=== PATIENT | male | born 1970 | race Caucasian/White ===

== ENCOUNTER 2019-09-13 11:31 | Outpatient (CLI) | payer OTHER, SELFPAY ==
[2019-09-13 12:10] LABS: Hematocrit 41.6 % (42.0-52.0); Mean Corpuscular HGB Conc 33.7 g/dl (32-36); Platelet Count Result 178 k/mm3 (150-375); Red Blood Count 4.52 M/mm3 (4.6-6.20); Red Cell Distribution Width 12.9 % (11.5-14.5); White Blood Count 5.5 K/mm3 (4.5-10.0)
--- NOTE | 2019-09-13 12:15 | ECG_ITS ---
Measurements Intervals [place] Rate: 75 P: 57 DE: 137 QRS: 81 QRSD: 102 T: 47 QT: 386 QTc: 432 Interpretive Statements SINUS RHYTHM DELAYED PRECORDIAL R/S TRANSITION BORDERLINE ST ABNORMALITY- INFERIOR LEADS BASELINE ARTIFACT- I, III, AVL, AVF BORDERLINE ECG Electronically Signed On 09-13-2019 12:28:34 ALMOND CUTTING MACHINE TENDER by Antonio Gonzales D.O.
[2019-09-13 12:22] LABS: Urine Cotinine NEGATIVE
[2019-09-13 12:29] LABS: Alanine Aminotransferase 25 U/L (4-50); Albumin Level 3.9 g/dL (3.5-5.1); Alkaline Phosphatase 88 U/L (38-126); Aspartate Amino Transferase 28 U/L (17-59); Bilirubin,Total 0.5 mg/dL (0.2-1.3); Blood Urea Nitrogen 13 mg/dL (9-20); Calcium 9.2 mg/dL (8.4-10.2); Carbon Dioxide 26 mmol/L (22-30); Chloride 102 mmol/L (98-107); Estimated Glomerular Filt Rate > 60; Glucose 110 mg/dL (75-110); Potassium 3.9 mmol/L (3.4-5.0); Sodium 136 mmol/L (137-145)
== END 2019-09-13 11:32 | disposition home or self-care (01) ==
PROVIDERS: PCP Family Medicine Adolescent Medicine
DX: Z01.818 Encounter for other preprocedural examination (principal); Z72.0 Tobacco use; R94.31 Abnormal electrocardiogram [ECG] [EKG]
CPT/HCPCS: 36415; 80053; 80307; 85027; 93005

== ENCOUNTER → 2020-05-03 11:51 | Outpatient (CLI) | payer OTHER, SELFPAY ==
--- NOTE | ~2020-05-03 | MR_ITS ---
EXAMINATION: MR brain/brain stem wo/w con EXAM DATE: 05/03/2020 12:28 INDICATION: Memory loss. TECHNIQUE: Magnetic resonance imaging (MRI) of the brain/brain stem obtained without contrast. Sagit aditya T1, axial diffusion, gradient echo (T2*), T1, T2, FLAIR sequences obtained. Patient was then inj ected with 15 cc intravenous Multihance contrast. Axial and coronal postcontrast T1 weighted sequence s obtained. Comparison is made to prior examination from 04/25/2018. FINDINGS: There are no areas of restricted diffusion to suggest acute infarction. There is no acute hemorrhage seen on the T2*, a hemosiderin sensitive sequence. No intraparenchymal brain mass. The ve ntricles are normal in size. There are no extra-axial collections. Flow voids are seen in the cereb ral arteries on the T2-weighted sequences consistent with their expected patency. The orbits are unr emarkable. Soft tissue is unremarkable. IMPRESSION: Normal brain MRI examination. Reviewed, dictated and finalized at location B.
[2020-05-03 12:15] LABS: Estimated Glomerular Filt Rate > 60
== END ==
PROVIDERS: PCP Family Medicine Adolescent Medicine; Visit Provider Physician Assistant
DX: R41.3 Other amnesia (principal)
CPT/HCPCS: 70553; A9577

== ENCOUNTER 2021-12-07 13:48 | Emergency (ER) | payer OTHER, SELFPAY ==
--- NOTE | ~2021-12-07 | XR_ITS ---
EXAMINATION: XR elbow RT min 3V DATE: 12/07/2021 14:24 INDICATION: Gout presenting with right elbow pain and swelling TECHNIQUE: Anteroposterior, two oblique and lateral views of the right elbow were obtained. COMPARISON: None. FINDINGS: Alignment is normal. No fracture. Subtle chondrocalcinosis along the radiocapitellar articulation. Th ere is mild nonuniform joint space narrowing at the ulnotrochlear articulation. Small marginal osteop hytes along the ulnar and radial head. No erosions. Right elbow joint effusion and/or synovitis is pr esent with displacement of both the anterior and posterior fat pads. Soft tissues are unremarkable. IMPRESSION: 1. Chondrocalcinosis, mild osteoarthritis and joint effusion and/or synovitis at the right elbow. No erosions or acute osseous abnormality. Reviewed, dictated and finalized at location A. IMPRESSION: 1. Chondrocalcinosis, mild osteoarthritis and joint effusion and/or synovitis a t the right elbow. No erosions or acute osseous abnormality.
[2021-12-07 13:51] VITALS: BP 137/102; PULSE 87; RESP 20; TEMP 36.2; O2SAT 100
--- NOTE | 2021-12-07 14:26 | ED.UPPEXIN ---
HPI - Extremity Injury (Upper) General Chief Complaint: Extremity Injury, Upper Stated Complaint: gout in elbow Time Seen by Provider: 12/07/21 14:05 History of Present Illness HPI narrative: 51-year-old male presents to the emergency room for evaluation of right ankle pain. Patient states he developed an acute onset of right elbow pain this morning. Denies injury or trauma. Patient states he has a history of gout, which is commonly in his knees. Patient states he takes allopurinol twice daily. Patient reports soft tissue swelling and warmth to the elbow. Related Data Home Medications Medication Instructions Recorded Confirmed venlafaxine 150 mg tablet,extended 150 mg PO DAILY 09/06/21 release 24 hr Allergies Allergy/AdvReac Type Severity Reaction Status Date / Time amitriptyline AdvReac Mild drowsiness Verified 08/28/21 08:27 Review of Systems Review of Systems: CONSTITUTIONAL: Denies fever, chills, or sweats. EYES: Denies visual changes, redness, or discharge. ENT: Denies rhinorrhea, congestion, sore throat, or otalgia. CARDIOVASCULAR: Denies chest pain, palpitations, or edema. RESPIRATORY: Denies cough or dyspnea. GASTROINTESTINAL: Denies abdominal pain, nausea, vomiting, or diarrhea. GENITOURINARY: Denies dysuria or hematuria. SKIN: Denies rash or itching. MUSCULOSKELETAL: Reports right elbow pain NEUROLOGIC: Denies headache, numbness, dizziness, or weakness. PSYCHIATRIC: Denies anxiety or depression. PMFSH Surgical History Surgical History H/O shoulder surgery History of cervical spinal arthrodesis 09/30 Dr. Kamara History of foot surgery Family History Family History Father Diabetes mellitus Heart disease Mother Patient's mother is Diabetes mellitus Carcinoma of colon Social History Social History Smoking status: Heavy tobacco smoker Second hand tobacco smoke exposure: Yes Smoking end date: 11/14/13 Alcohol intake: current Exam Narrative: GENERAL: Well-appearing, well-nourished, and in mild acute distress. HEAD: Normocephalic, atraumatic. EYES: PERRLA and EOMI. CHEST: Clear to auscultation. No respiratory distress. No wheezes rales or rhonchi HEART: Regular rate and rhythm. No murmur heard. Normal peripheral pulses. ABDOMEN: Soft, nontender, nondistended, normal active bowel sounds. EXTREMITIES: Right elbow: No obvious bony abnormality, diffuse soft tissue swelling, warm, no erythema or ecchymosis noted limited range of motion due to swelling and pain, neurovascular is intact distally SKIN: Warm, dry, no rash. NEURO: No focal deficits. Alert and oriented x3. PSYCH: Normal mood and affect. Course Vital Signs Vital signs: Vital Signs Temperature 36.2 C L 12/07/21 13:51 Pulse Rate 87 12/07/21 13:51 Respiratory Rate 20 12/07/21 13:51 Blood Pressure 137/102 H 12/07/21 13:51 Pulse Oximetry 100 12/07/21 13:51 Temperature 36.2 C L 12/07/21 13:51 Pulse Rate 87 12/07/21 13:51 Respiratory Rate 20 12/07/21 13:51 Blood Pressure 137/102 H 12/07/21 13:51 Pulse Oximetry 100 12/07/21 13:51 MDM - Extremity Injury (Upper) Medical Records Attestation: I reviewed the patient's medical records. Lab Data Attestation: I reviewed the patient's lab results. Result diagrams: 12/07/21 14:37 12/07/21 14:37 Labs: Lab Results 12/07/21 12/07/21 Range/Units 14:37 14:37 WBC 12.0 H (4.5-10.0) K/mm3 RBC 4.64 (4.6-6.20) M/mm3 Hgb 14.1 (14.0-18.0) g/dL Hct 42.5 (42.0-52.0) % MCV 91.6 (80-100) fl MCH 30.4 (26-34) pg MCHC 33.2 (32-36) g/dl RDW 13.3 (11.5-14.5) % Plt Count 199 (150-375) k/mm3 MPV 9.4 (7.4-10.4) fl Immature Gran % (Auto) 0.4 (0-0.5) % Neut % (Auto) 87.4 H (45.5-73.1) % Lymph % (Au
[2021-12-07] MEDS: KETOROLAC 30 MG/ML VIAL (*BKC) IV PUSH (14:34)
[2021-12-07 14:44] LABS: Basophils Percent Auto 0.3 % (0.2-1.2); Eosinophils Percent Auto 0.2 % (0-4.4); Hematocrit 42.5 % (42.0-52.0); Hemoglobin 14.1 g/dL (14.0-18.0); Immature Granulocyte Absolute 0.05 K/mm3 (0.00-0.031); Immature Granulocyte Percent A 0.4 % (0-0.5); Lymphocytes Absolute Auto 0.76 K/mm3 (0.9-3.2); Lymphocytes Percent Auto 6.3 % (18.3-44.2); Mean Corpuscular HGB Conc 33.2 g/dl (32-36); Mean Corpuscular Hemoglobin 30.4 pg (26-34); Mean Corpuscular Volume 91.6 fl (80-100); Mean Platelet Volume 9.4 fl (7.4-10.4); Monocytes Absolute Auto 0.7 K/mm3 (0.1-0.6); Monocytes Percent Auto 5.4 % (2.6-8.5); Neutrophils Absolute Auto 10.5 K/mm3 (1.3-6.7); Neutrophils Percent Auto 87.4 % (45.5-73.1); Platelet Count Result 199 k/mm3 (150-375); Red Blood Count 4.64 M/mm3 (4.6-6.20); Red Cell Distribution Width 13.3 % (11.5-14.5)
[2021-12-07 14:59] LABS: Alanine Aminotransferase 18 U/L (4-50); Albumin Level 3.8 g/dL (3.5-5.1); Alkaline Phosphatase 98 U/L (38-126); Anion Gap 7 mmol/L (8-16); Aspartate Amino Transferase 25 U/L (17-59); Bilirubin,Total 0.4 mg/dL (0.2-1.3); Blood Urea Nitrogen 16 mg/dL (9-20); Calcium 8.7 mg/dL (8.4-10.2); Carbon Dioxide 23 mmol/L (22-30); Chloride 104 mmol/L (98-107); Estimated CRCL calculation 60 ml/min; Estimated Glomerular Filt Rate > 60; Glucose 153 mg/dL (65-110); Potassium 3.8 mmol/L (3.4-5.0); Sodium 134 mmol/L (137-145)
== END 2021-12-07 15:42 | disposition home or self-care (01) ==
PROVIDERS: Emergency Medicine; Emergency Provider Nurse Practitioner Family; PCP Family Medicine Adolescent Medicine
DX: M11.221 Other chondrocalcinosis, right elbow (principal); Z98.1 Arthrodesis status; Z87.891 Personal history of nicotine dependence; M19.021 Primary osteoarthritis, right elbow
CPT/HCPCS: 36415; 73080; 80053; 85025; 96372; 96374; 99284; J1100; J1885

== ENCOUNTER 2022-07-02 21:48 | Inpatient (IN) | payer MEDICARE, MEDICAID, SELFPAY ==
[2022-07-02] VITALS (10 sets, daily range): BP systolic 110–121; BP diastolic 86–93; PULSE 80–99; RESP 20–30; TEMP 36.9; O2SAT 94–98
--- NOTE | ~2022-07-02 | US_ITS ---
EXAMINATION: US renal BI DATE: 07/03/2022 09:29 INDICATION: Acute kidney injury. TECHNIQUE: Multiple ultrasound grayscale images of the kidneys were obtained. COMPARISON: None. FINDINGS: The right kidney measures 11.1 x 5.2 x 5.4 cm. The left kidney measures 10.2 x 5.4 x 5.9 cm. The kidn eys demonstrate normal parenchymal echogenicity. There is no hydronephrosis. The bladder is decompres sed by a Ratliff catheter. IMPRESSION: 1. Normal kidneys. No hydronephrosis. Reviewed, dictated and finalized at location A. UNTS EXECUTIVE
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
--- NOTE | ~2022-07-02 | XR_ITS ---
EXAMINATION: XR chest 1V portable DATE: 07/03/2022 13:04 INDICATION: Chronic obstructive pulmonary disease. TECHNIQUE: A single frontal view of the chest was obtained. COMPARISON: Chest 2 views 12/07/2018, chest CT 08/03/2015 FINDINGS: The chest demonstrates clear lungs without pneumonia, pleural effusion, or pneumothorax. Th e heart size is normal. IMPRESSION: 1. No acute cardiopulmonary disease. Reviewed, dictated and finalized at location A. ION FUND MANAGER
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
--- NOTE | 2022-07-02 22:26 | PC.NURSE ---
Poison control contacted at 22:22. Per pharmacist they recommend supportive and symptomatic care at this time. Per pharmacist expect decreased REAL ESTATE REPRESENTATIVE and respiratory depression. Peak time is 15 mins to 2 1/2 hours. Pt can tolerate a maximum dose of 143.6mg / day. It is estimated pt took 30-40 5 mg diazepam pills equaling 150-200mg. Poison control pharmacist does not recommend flumazenil due to it being his prescription and can increase effects of withdrawal.
--- NOTE | 2022-07-02 22:30 | ECG_ITS ---
Measurements Intervals [place] Rate: 94 P: 57 AL: 134 QRS: 51 QRSD: 109 T: 47 QT: 367 QTc: 459 Interpretive Statements SINUS RHYTHM NORMAL ECG COMPARED TO ECG 09/13/2019 12:24:58 NO SIGNIFICANT CHANGES Electronically Signed On 07-03-2022 9:02:44 MEAT CARVER by Antonio Gonzales D.O.
[2022-07-02 22:46] LABS: Basophils Percent Auto 0.2 % (0.2-1.2); Eosinophils Absolute Auto 0.1 K/mm3 (0-0.3); Eosinophils Percent Auto 0.8 % (0-4.4); Hematocrit 44.7 % (42.0-52.0); Hemoglobin 15.2 g/dL (14.0-18.0); Immature Granulocyte Absolute 0.02 K/mm3 (0.00-0.031); Immature Granulocyte Percent A 0.2 % (0-0.5); Lymphocytes Absolute Auto 1.52 K/mm3 (0.9-3.2); Lymphocytes Percent Auto 15.7 % (18.3-44.2); Mean Corpuscular Hemoglobin 30.7 pg (26-34); Mean Corpuscular Volume 90.3 fl (80-100); Monocytes Absolute Auto 0.5 K/mm3 (0.1-0.6); Monocytes Percent Auto 5.6 % (2.6-8.5); Neutrophils Absolute Auto 7.5 K/mm3 (1.3-6.7); Neutrophils Percent Auto 77.5 % (45.5-73.1); Platelet Count Result 197 k/mm3 (150-375); Red Blood Count 4.95 M/mm3 (4.6-6.20); White Blood Count 9.7 K/mm3 (4.5-10.0)
[2022-07-02 22:59] LABS: Acetaminophen < 10 ug/mL (10-30); Ethanol < 10 mg/dL (<10); Salicylate < 1.0 mg/dL (2-20)
[2022-07-02 23:00] LABS: Alanine Aminotransferase 20 U/L (6-50); Albumin Level 3.7 g/dL (3.5-5.1); Alkaline Phosphatase 90 U/L (38-126); Anion Gap 4 mmol/L (8-16); Aspartate Amino Transferase 31 U/L (17-59); Bilirubin,Total 0.3 mg/dL (0.2-1.3); Blood Urea Nitrogen 22 mg/dL (9-20); Calcium 8.5 mg/dL (8.4-10.2); Carbon Dioxide 26 mmol/L (22-30); Chloride 104 mmol/L (98-107); Estimated CRCL calculation 50 ml/min; Estimated Glomerular Filt Rate 46; Glucose 104 mg/dL (65-110); Potassium 3.9 mmol/L (3.4-5.0); Sodium 134 mmol/L (137-145)
--- NOTE | 2022-07-02 23:07 | PC.NURSE ---
Poison control faxed over overdose instructions. Placed on pt's chart.
[2022-07-02 23:22] LABS: SARS-CoV-2 RNA PCR Negative
[2022-07-02 23:24] LABS: Appearance Urine Clear (Clear); Bilirubin Urine Negative (Negative); Blood Urine 3+ (Negative); Color Urine Yellow (Yellow); Glucose Urine UA Negative (Negative); Ketones Urine Negative (Negative); Leukocyte Esterase Ur Negative LEU/UL (Negative); Nitrate Urine Negative (Negative); Protein Urine 3+ mg/dL (Negative); Specific Grav Ur 1.015 (1.001-1.035); Urobilinogen Urine 0.2 mg/dL (<2.0)
[2022-07-02 23:31] LABS: Mucus Urine Rare /lpf; Squamous Epithelial Cell Urine Rare /hpf (Few); WBC Urine 0-3 /hpf
[2022-07-02 23:32] LABS: Add Urine Microscopic? YES
[2022-07-02 23:39] LABS: Barbiturate Screen Urine Negative (Negative); Benzodiazepines Screen Urine Positive (Negative)
--- NOTE | 2022-07-02 23:53 | ED.GENADULT ---
HPI - General Adult General Chief complaint: Overdose Stated complaint: OVERDOSE Time Seen by Provider: 07/02/22 23:01 History of Present Illness HPI narrative: This is a 51-year-old presenting ED with a intentional Valium overdose. Patient is getting worse from his and took 30-45 mg tablets of Valium. He then video messaged his who called EMS and had the hospital. At this time patient is responsive to pain. Related Data Home Medications Medication Instructions Recorded Confirmed venlafaxine 150 mg tablet,extended 150 mg PO DAILY 09/06/21 release 24 hr Allergies Allergy/AdvReac Type Severity Reaction Status Date / Time amitriptyline AdvReac Mild drowsiness Verified 07/03/22 01:45 Review of Systems Review of Systems: Unable to obtain due to medical condition. [facility] Past Medical History Medical History Anxiety Chronic pain COPD (chronic obstructive pulmonary disease) Depression Gout Migraines Spinal stenosis, lumbar region without neurogenic claudication Surgical History Surgical History H/O shoulder surgery History of cervical spinal arthrodesis 09/30 Dr. Kamara History of foot surgery Family History Family History Father Diabetes mellitus Heart disease Mother Patient's mother is Diabetes mellitus Carcinoma of colon Social History Social History Social History: According to past medical records the patient has smoked as much as 3 packs cigarettes per day. He has a history of episodic alcohol use. Smoking status: Heavy tobacco smoker Second hand tobacco smoke exposure: Yes Smoking end date: 11/14/13 Alcohol intake: current Exam Narrative: APPEARANCE: Responsive to pain Head: atraumatic. EYES: EOMI, 2 mm equal and reactive NOSE: Atraumatic NECK: Trachea midline RESPIRATORY: increased respiratory rate, clear to auscultation bilaterally CARDIOVASCULAR: RRR, ABDOMINAL: Non-distended MUSCULOSKELETAl: No obvious deformities NEURO: Alert. Moving 4/4 extremities to pain SKIN:: Warm, dry. Normal color PSYCHIATRIC: somnolent Course Vital Signs Vital signs: Vital Signs Temperature 98.5 F 07/02/22 21:48 Pulse Rate 99 07/02/22 21:48 Respiratory Rate 30 H 07/02/22 21:48 Pulse Oximetry 97 07/02/22 21:48 Oxygen Delivery Room Air 07/02/22 21:48 Temperature 98.5 F 07/02/22 21:48 Pulse Rate 89 07/03/22 01:38 Respiratory Rate 22 H 07/03/22 01:38 Blood Pressure 161/107 H 07/03/22 01:38 Pulse Oximetry 91 07/03/22 01:38 Oxygen Delivery Room Air 07/02/22 21:48 Medical Decision Making MDM Narrative Medical decision making narrative: is a 51-year-old male presenting with an intentional Valium overdose. Patient has a benzodiazepine overdose toxidrome and is currently responsive to pain. He is protecting his own airway and is maintaining his saturations. Poison control was called and they recommended supportive care until the Valium works its way out of his system. Patient's lab work was within normal limits. His urine drug screen was positive for benzodiazepines, Cannabinoids and amphetamines. EKG interpretation: Rhythm [sinus], Rate 94, [place]pc[place] -[normal], CA -[normal], QRS [narrow], QTC [normal], T waves -[negative for concerning inversions], ST Segments - [Negative for concerning elevations] Final interpretations: [Normal Sinus Rhythm] ABG did not show signs of hypoxic or hypercarbic respiratory failure Due to its long duration reaction the patient will require admission until his mental status has improved. Patient did have an active suicide attempt and will require inpatient psychiatry. The patient woke up and physically and verbally aggressive with staff. He was placed i
[2022-07-03] VITALS (33 sets, daily range): BP systolic 87–161; BP diastolic 67–108; PULSE 62–99; RESP 15–24; TEMP 36.3–37.1; O2SAT 91–100; BMI 26.4
[2022-07-03 00:27] LABS: Cannabinoid Screen Urine Positive (Negative); Cocaine Screen Urine Negative (Negative); Methadone Screen Urine Negative (Negative); Opiate Screen Urine Negative (Negative); Phencyclidine Screen Urine Negative (Negative)
[2022-07-03 00:31] LABS: Amphetamine Screen Urine Positive (Negative)
[2022-07-03 00:49] LABS: Base Excess ABG -2.5 mEq/l (+/-2.0); Fractional Inspired Oxygen 21 %; HCO3 ABG 22.7 mEq/l (22.0-26.0); Oxygen Content ABG 20.9 %vol (16.0-22.0); Oxygen Saturation ABG 95.3 % (95.0-100.0); Oxyhemoglobin 93.6 % THb (90.0-100.0); PCO2 ABG 40.9 mmHg (35.0-45.0); PO2 ABG 78.8 mmHg (80.0-100.0); PO2 FiO2 Ratio Arterial Blood 3.75 %; Total Hemoglobin 15.9 g/dL (12.0-18.0); pH ABG 7.362 (7.350-7.450)
[2022-07-03 00:50] LABS: Modified Allen's Test Pass; Site Drawn RIGHT RADIAL
[2022-07-03] MEDS: HALOPERIDOL LACTATE 5 MG/ML VIAL IM (01:03)
[2022-07-03] MEDS: LORazepam INJ (*CRX) 2 MG/ML VIAL IV PUSH (01:07)
--- NOTE | 2022-07-03 01:11 | PC.NURSE ---
Bedside receptionist scheduler instructed this RN that this pt was attempting to remove his IV. This RN instructed the pt to not remove IV due to pt's current condition. Pt immediately started swearing and yelling attempting to get out of bed. The pt threatened to hit this RN. Security called and pt attempted to further get out of bed. Pt immediately became violent with security and calling them nig*ers . Pt was place in hard restraints to maintain his safety and the hospital employees safety. Pt distal CSM to restraints in tact. Pt continue to yell and states they will break their arms if not let out of restraints. Pt stated I'm going to blow up with entire hospital as soon as I get out of this place . Pt continues to yell at security and call them the N-word and stating they are going to kill the security program manager when they are released from the hospital. Pt continues to thrash in bed in restraints. Pt started hitting head on bedrail, this RN applied seizure pads. Pt is currently spitting at employees/security and in bed. VORB - 5 haldol and [address] Umanzor given IM. Pt continues to thrash in bed violently, spit, cuss, and scream.
[2022-07-03] MEDS: KETAMINE HCL (*CRX) 500 MG/10 ML VIAL 400 MG IM (01:22)
[2022-07-03] MEDS: SODIUM CHLORIDE 0.9% IV 2,000 ML 999 ML IV CONT (01:37)
--- NOTE | 2022-07-03 02:19 | PM.IMHP ---
H&P: HPI History of Present Illness Date/Time: 07/03/22 02:19 Chief Complaint: Benzodiazepine overdose Narrative: 51-year-old male with past medical history anxiety, depression, chronic pain and drug use who presented to the ER due to intentional overdose of diazepam. The entirety of the HPI comes from review of past medical records and ER records. Per the EMS report the patient ingested 30-35 tablets of 5 mg volume. The patient had evidently taken the medications and immediately called his over Face time and she saw him take handful of Valium. The patient is evidently prescribed 5 mg of Valium q.h.s. p.r.n. sleep and was last filled in March. After she witnessed him in just the pills she called EMS which arrived on scene around 21:00. The patient was found in his vehicle behind his residence. He was alert orient x2 with slow speech and unsteady gait. According to the ER physician's report once patient arrived to the ER he was only responsive to pain in evaluated. He was reportedly protecting his airway and maintaining oxygen saturations. Poison Control was contacted and stated that the peak for diazepam would be within 30 minutes and duration of around 2.5 hours. Urine drug screen was performed and demonstrated positive for benzodiazepines, opiates and marijuana. Evaluation in the ER demonstrated acute kidney injury. Patient was called for admission to my service from the ER. Shortly after I except the patient admission evidently the patient had woke up in the ER and was violent. He was cussing at staff in using racial slurs and spitting. He received 5 mg of IM Haldol and 2 mg of Ativan. After 15 minutes the patient was still straining against hard walking wrist restraints and received 400 mg IM ketamine. I was called and notified of the change in the patient's condition by the ER provider. I went down to evaluate the patient found the patient in four-point locking restraints and completely sedated. The patient did not wake up and was not following commands. A woman called Crystal called to ask about the patient. However she is not listed in the patient's chart as a person to notify. She told the ER nurses that she was the patient is soon to be ex- in that his white he tried to commit suicide. The person listed as a contact in the patient's chart and listed his was Pily. After patient arrived to the ICU hard restraints were removed. Patient did start to wake up and was not following commands. Precedex infusion was started. The patient does have a history of chronic opiate use due to chronic pain. He did have his [place] filled recently. Interestingly enough the patient's urine drug screen was negative for opiates. Review of Systems Review of Systems: Unobtainable due to patient's mentation/clinical condition. [facility] Past Medical History Medical History (Updated 07/03/22 @ 04:20 by Angelique Dalton DO) Anxiety Chronic pain COPD (chronic obstructive pulmonary disease) Depression Gout Migraines Spinal stenosis, lumbar region without neurogenic claudication Surgical History Surgical History (Updated 07/03/22 @ 04:06 by Angelique Dalton DO) History of cervical spinal arthrodesis 09/30 Dr. Kamara History of foot surgery History of repair of right rotator cuff Family History Family History Father Diabetes mellitus Heart disease Mother Diabetes mellitus Carcinoma of colon Social History Social History (Updated 07/03/22 @ 04:14 by Angelique Dalton DO) Social History: According to past medical records the patient has smoked as much as 3 packs cigarettes per day. He has a history of episodic alcohol use. Smoking packs per day: 3 Smoking cigarettes per day: 60.0 Years smoked: 25 Smoking pack-years: 75.00 Smoking status: Heavy tobacco smoker Second hand tobacco smoke exposure: Yes Smoking end date: 11/14/13 Vira
[2022-07-03 02:40] LABS: Creatine Kinase 294 U/L (55-170)
[2022-07-03] MEDS: LACTATED RINGERS 1,000 ML 125 ML IV CONT ×3 (02:43→16:33)
--- NOTE | 2022-07-03 03:30 | ADMGEN ---
This patient, Sarmad Mercado, was admitted to Intensive Care Unit-3. Patient/family oriented to hospital policies and general routines including ID bracelet, bed and alarms, visiting hours, pain management, procedures, bathroom and other care routines, personal items, smoking policy, room service/diet, and visiting hours. Information on how to activate the Rapid Response Team has been discussed. Patient/Family are encouraged to report perceived risks to care and to ask questions if they do not understand what they are told or what they should do.
[2022-07-03] MEDS: dexmedeTOMIDine 400 MCG/100 ML 400 MCG/100 ML BAG IV CONT (03:38)
[2022-07-03 05:09] LABS: Hematocrit 41.4 % (42.0-52.0); Hemoglobin 13.6 g/dL (14.0-18.0); Mean Corpuscular HGB Conc 32.9 g/dl (32-36); Mean Corpuscular Hemoglobin 30.3 pg (26-34); Mean Corpuscular Volume 92.2 fl (80-100); Mean Platelet Volume 9.1 fl (7.4-10.4); Platelet Count Result 170 k/mm3 (150-375); Red Blood Count 4.49 M/mm3 (4.6-6.20); Red Cell Distribution Width 13.1 % (11.5-14.5); White Blood Count 8.4 K/mm3 (4.5-10.0)
[2022-07-03 05:21] LABS: Alanine Aminotransferase 18 U/L (6-50); Alkaline Phosphatase 72 U/L (38-126); Anion Gap 2 mmol/L (8-16); Aspartate Amino Transferase 28 U/L (17-59); Bilirubin,Total 0.4 mg/dL (0.2-1.3); Blood Urea Nitrogen 19 mg/dL (9-20); Calcium 7.6 mg/dL (8.4-10.2); Carbon Dioxide 23 mmol/L (22-30); Chloride 108 mmol/L (98-107); Creatine Kinase 499 U/L (55-170); Estimated CRCL calculation 55 ml/min; Estimated Glomerular Filt Rate 49; Glucose 124 mg/dL (65-110); Sodium 133 mmol/L (137-145)
[2022-07-03] MEDS: ENOXAPARIN 40 MG/0.4 ML SYRINGE SUB-Q (09:25)
[2022-07-03] MEDS: PANTOPRAZOLE SODIUM IV 40 MG VIAL IV PUSH (09:25)
[2022-07-03 09:50] LABS: Creatinine Urine 79.5 mg/dL
[2022-07-03 09:56] LABS: Sodium Urine Random 23 meq/L
--- NOTE | 2022-07-03 10:17 | PC.NURSE ---
Spoke with Alison Manriquez, Poison control. Alison encourages continuation of IVF rehydration.
--- NOTE | 2022-07-03 10:46 | WPDCNINT ---
Assessment and Plan Assessment and plan (1) Suicide attempt by multiple drug overdose: Code(s): T50.912A - Poisoning by multiple unspecified drugs, medicaments and biological substances, intentional self-harm, initial encounter Status: Acute Assessment and Plan: Supportive treatment for benzodiazepine overdose as suicide attempt Hemodynamically stable and saturating adequately on room air ABG shows no hypercarbia Patient now arousable Hold Precedex Sitter at bedside Will consult Psychiatry tomorrow for evaluation (2) Amphetamine abuse: Code(s): F15.10 - Other stimulant abuse, uncomplicated Status: Acute Assessment and Plan: Patient will be counseled and encouraged to quit once he is more awake (3) Acute kidney injury: Code(s): N17.9 - Acute kidney failure, unspecified Status: Acute Assessment and Plan: Patient does take NSAIDs as an outpatient which could be the culprit and patient also has mild rhabdomyolysis Dehydration may also be contributing Continue IV fluids Monitor CK level Renal ultrasound was normal urine electrolytes suggest prerenal (4) Encephalopathy: Code(s): G93.40 - Encephalopathy, unspecified Status: Acute Assessment and Plan: Toxic encephalopathy Exam nonfocal Hold Precedex at this point and monitor Plan DVT prophylaxis - Lovenox Stress ulcer prophylaxis -PPI Nutrition -NPO Code Status - Full Code Computing Tutor Consult Note Consult date: 07/03/22 Reason for consult: Suicide attempt, benzodiazepine overdose HPI: Sarmad Mercado is a 51 year old male with past medical history of anxiety depression chronic pain and drug abuse presented yesterday to ER with chief complaint of intentionally taking Valium to kill himself. Patient was having problems in his marriage and told the ED physician that he took approximately 30 pills of 5 mg tablets of Valium. He has Valium prescription for sleep as needed March. This incident happened around 2100 yesterday. On presentation he was alert oriented with slow speech. His urine drug screen was positive for amphetamines and cannabinoid along with benzodiazepine. In control was notified. Also had elevated creatinine patient was initially admitted a later became belligerent and violent with staff. Was given Ativan IM Haldol and IM ketamine in the ED along with physical restraints. Patient was then admitted to ICU for further evaluation management. In ICU he was started on Precedex infusion. This morning when I evaluated the patient he is on 0.3 mics of Precedex. He is drowsy but arousable. He is not cooperative and does not answer questions. When asked him why he is here and he replied, just playing the fucking game he would not answer any review of system questions. But he did replied that he was starving when I asked him if he was hungry. He word follow commands intermittently Review of Systems Review of Systems: ROS unobtainable: Yes unobtainable due to medical condition PMFSH Past Medical History Medical History Anxiety Chronic pain COPD (chronic obstructive pulmonary disease) Depression Gout Migraines Spinal stenosis, lumbar region without neurogenic claudication Surgical History Surgical History History of cervical spinal arthrodesis 09/30 Dr. Kamara History of foot surgery History of repair of right rotator cuff Family History Family History Father Diabetes mellitus Heart disease Mother Diabetes mellitus Carcinoma of colon Social History Social History Social History: According to past medical records the patient has smoked as much as 3 packs cigarettes per day. He has a history of episodic alcohol use. Smoking packs per day: 3 Smoking cigarettes p
--- NOTE | 2022-07-03 10:53 | PCFNICU ---
ICU Rounding Note: Pt current nutrition is NPO. Last recorded weight is 85.9 kg Bowel Motility:No BM reported. Labs Reviewed:Cr 1.5,Na 133, Alb 3.0, Hct 41.4,Hgb 13.6 Meds Noted:Protonix, LR Skin: WNL Additional Notes: Patient is currently NPO. Drowsy. off Precedex. Recommend advancing diet as tolerated per MD orders. No further nutritional needs at this time. Following daily in ICU rounds.
[2022-07-03] MEDS: methylPREDNISolone SOD SUCC 125 MG VIAL 60 MG IV PUSH (13:26)
[2022-07-03] MEDS: ALBUTEROL SULFATE NEB 2.5 MG/3 ML INH INHALATION (14:13)
[2022-07-03] MEDS: IPRATROPIUM BR 0.02% INH SOLN 0.5 MG/2.5 ML VIAL INHALATION (14:13)
[2022-07-03] MEDS: MIDAZOLAM HCL (*CRX) 2 MG/2 ML VIAL 4 MG IV PUSH (14:46)
--- NOTE | 2022-07-03 20:05 | PCRCNOTE ---
2000 UPD not given. RN advised to not go into room. Next available UPD is 0200.
[2022-07-03] MEDS: dexmedeTOMIDine 400 MCG/100 ML 400 MCG/100 ML BAG 8.45 MCG IV CONT (22:26)
[2022-07-04] VITALS (23 sets, daily range): BP systolic 95–124; BP diastolic 76–100; PULSE 68–78; RESP 18–27; TEMP 36.2–36.7; O2SAT 94–98
--- NOTE | 2022-07-04 02:32 | PCRCNOTE ---
0200 UPD not given. RN advised not to go into room. Next available UPD at 0800.
[2022-07-04] MEDS: LACTATED RINGERS 1,000 ML 125 ML IV CONT ×3 (03:44→19:30)
[2022-07-04] MEDS: dexmedeTOMIDine 400 MCG/100 ML 400 MCG/100 ML BAG 8.45 MCG IV CONT (03:44)
--- NOTE | 2022-07-04 05:05 | PC.NURSE ---
0505- Code wendy was called to room. Patient was yelling, kicking, and screaming. Precedex was increased per Dr. Dalton from 0.4 to 0.7mcg/kg/hr. Patient complaining of back pain. 0530- Patient refusing to take nucynta for pain. He states I have never heard of that, so I am not taking it.
--- NOTE | 2022-07-04 08:39 | PC.NURSE ---
Dr. Price and this RN at beside assessing patient. Pt threatening to hit staff. Pt refusing lab draws. Pt stated I will break their fucking neck if they come near me with a needle. New order to d/c lab draws for today.
[2022-07-04] MEDS: ENOXAPARIN 40 MG/0.4 ML SYRINGE SUB-Q (09:38)
[2022-07-04] MEDS: PANTOPRAZOLE SODIUM IV 40 MG VIAL IV PUSH (09:38)
[2022-07-04] MEDS: methylPREDNISolone SOD SUCC 125 MG VIAL 60 MG IV PUSH (09:39)
--- NOTE | 2022-07-04 10:47 | PC.NURSE ---
Pt's at bedside. Pt calm and agreeable to treatment. New order from Dr. Price to pause precedex infusion, may restart if patient becomes combative and belligerent again. New order to reorder lab draws from this AM. Per Dr. Price, Pt may eat and have a glass of water.
--- NOTE | 2022-07-04 11:30 | PC.NURSE ---
Pt's returned to assist staff with lab draw. Pt's began to yell due to patient receiving cold toast and banana That's not breakfast. That's not edible. How dare do you expect someone to eat this shit. Phlebotomists at bedside. Pt refusing blood draw. I'm not letting a fucking nigger draw my blood. I want a white person to do it!!! This RN at bedside as continued to be upset. asked Could he have a research chef salad or if we could order him some actual food. This RN informed the of the policy that pt can't have utensils in the room d/t his suicide precautions. stated I need to talk to someone in charge. Where is your charge nurse. This RN notified boomswing operator that wanted to speak with her. Once boomswing operator came to room stated Fuck this! I'm not talking to that fucking bitch. Get me someone in charge. boomswing operator called [employer]. and patient continue to remain belligerent. Security called and Dr. Price notified of the situation. Dr. Price, Ten[employer]or, Security and several RN's at bedside. Patient remains belligerent and combative. Screaming at Dr. Price and RN Get your nigger ass out of my room. Take your black ass back to [facility]. You don't deserve to care for me. yelling This is inhuman. You can't treat people like that. All you want to do is drug him up. Dr. Price informed that the sedation was for his own safety and the safety of the staff. New order to give 4mg Versed IVP and resume Precedex gtt at 0.7mcg/kg/hr. Staff remains at bedside until medication has taken effect and patient return to calm status. escorted out of patient's room and left on her own terms from the ICU.
[2022-07-04] MEDS: MIDAZOLAM HCL (*CRX) 2 MG/2 ML VIAL 4 MG IV PUSH (11:44)
--- NOTE | 2022-07-04 12:42 | WPDINTPN ---
Progress Note: A&P Assessment and Plan (1) Suicide attempt by multiple drug overdose: Code(s): T50.912A - Poisoning by multiple unspecified drugs, medicaments and biological substances, intentional self-harm, initial encounter Status: Acute Assessment and Plan: On admission patient was started on Supportive treatment for benzodiazepine overdose as suicide attempt Hemodynamically stable and saturating adequately on room air ABG showed no hypercarbia Sitter at bedside Patient has been on and off of Precedex due to agitation and violent behavior. This morning patient appeared calm but he was on Precedex in few. He refused to answer any meaningful questions kept on stating that he wants to ' get the fuck out of here'.he refused lab draws this morning. He continues to be on IV fluids and has good urine output. The only review of system question he answered was that he was hungry and would like to eat food. His arrived at bedside and I tried to explain to her the current situation including acute kidney injury, rhabdomyolysis, patient being under suicide precautions and lack of cooperation from patient. Patient also exhibiting violent behavior. She states that patient would cooperate and become. We requested food for the patient. He agreed for the lab draws. I requested nurse to discontinue Precedex infusion and monitor. Later when field reviewer arrived in the room patient refused blood draw and said I'm not letting a fucking nigger draw my blood. I want a white person to do it!!! From there onwards patient became more and more agitated and belligerent. He used racist an abusive language towards medical staff and called staff members N-word multiple times. Security had to be called in. Patients Neurology and controlling and coming [facility] down [facility]. Nurses had ordered chicken strips for him as he refused to eat his breakfast stating that this is the 'dog food' I was trying to talk to both patient and patient's to try to find a solution and make his stay more comfortable while ensuring safety of both patient and staff. This is when patient tried to take a swing at me. Patient's was aggravated and shouting and threatening staff members. She had to be escorted out by security. Patient pulled out his IV and was bleeding all over the bed. At that point unfortunately I had to give patient additional benzodiazepine to calm him down and control the situation. He was resumed on Precedex infusion It is a difficult situation as psychiatry will not evaluate patient unless he is medically cleared. Patient uncooperative and belligerent and refusing blood draws. He is impulsive and threat to both staff and himself and cannot be discharged. We have to sedate him to control his behavior for his own and staff safety. I have spoken to Dr. Asif Chavez in detail by phone who will evaluate patient later today. After discussing case he also feels the patient is too unstable to be discharged or transferred at this time. He will evaluate patient later today. He also cautioned against allowing his to bring in food from outside as that may be laced with drugs. (2) Amphetamine abuse: Code(s): F15.10 - Other stimulant abuse, uncomplicated Status: Acute Assessment and Plan: Patient will be counseled and encouraged to quit once he is more stable (3) Acute kidney injury: Code(s): N17.9 - Acute kidney failure, unspecified Status: Acute Assessment and Plan: Patient does take NSAIDs as an outpatient which could be the culprit and patient also has mild rhabdomyolysis Dehydration may also be contributing Continue IV fluids Monitor CK level but patient has been refusing lab draws Renal ultrasound was normal urine electrolytes suggest prerenal (4) Encephalopathy: Code(s): G93.40 - Encephalopathy, unspecified
--- NOTE | 2022-07-04 13:09 | PM.IMPN ---
Progress Note: A&P Assessment and Plan (1) Benzodiazepine (tranquilizer) overdose: Qualifiers: Encounter type: initial encounter Injury intent: intentional self-harm Qualified Code(s): T42.4X2A - Poisoning by benzodiazepines, intentional self-harm, initial encounter Code(s): T42.4X1A - Poisoning by benzodiazepines, accidental (unintentional), initial encounter Status: Acute Assessment and Plan: Patient attempted suicide via benzodiazepine overdose the patient actually woke up after benzodiazepine overdose but became quite agitated likely due to his concomitant or recent methamphetamine ingestion. Patient subsequently required doses of Haldol, Ativan and ketamine. Patient is now in the ICU on Precedex drip. ehr trainer is at bedside. Patient is no longer in hard restraints. 07/04/2022 interval history: this morning patient's is present in the room patient still quite agitated and uncooperative and speaks out in profanity, discussed with ballet professor will have a psychiatry consult further evaluate the patient patient will benefit going into inpatient [facility] for treatment, will continue to monitor. (2) Suicide attempt: Code(s): T14.91XA - Suicide attempt, initial encounter Status: Acute Assessment and Plan: ehr trainer at bedside. Patient will need medical clearance prior to psychiatric evaluation. (3) Amphetamine abuse: Code(s): F15.10 - Other stimulant abuse, uncomplicated Status: Acute Assessment and Plan: Symptomatic treatment with benzodiazepines. Patient is currently on Precedex infusion. (4) Acute kidney injury: Code(s): N17.9 - Acute kidney failure, unspecified Status: Acute Assessment and Plan: Likely due to combination of dehydration and mild rhabdomyolysis from methamphetamine use. Patient received 2 L isotonic fluids in the ER. Will continue LR 125 an hour. Repeat BMP in a.m.. Subjective Date/time seen: 07/04/22 13:09 Chief Complaint: Benzodiazepine overdose Narrative: 51-year-old male with past medical history anxiety, depression, chronic pain and drug use who presented to the ER due to intentional overdose of diazepam.? The entirety of the HPI comes from review of past medical records and ER records.? Per the EMS report the patient ingested 30-35 tablets of 5 mg volume.? The patient had evidently taken the medications and immediately called his over Face time and she saw him take handful of Valium.? The patient is evidently prescribed 5 mg of Valium q.h.s. p.r.n. sleep and was last filled in March.? After she witnessed him in just the pills she called EMS which arrived on scene around 21:00.? The patient was found in his vehicle behind his residence.? He was alert orient x2 with slow speech and unsteady gait.? According to the ER physician's report once patient arrived to the ER he was only responsive to pain in evaluated.? He was reportedly protecting his airway and maintaining oxygen saturations.? Poison Control was contacted and stated that the peak for diazepam would be within 30 minutes and duration of around 2.5 hours.? Urine drug screen was performed and demonstrated positive for benzodiazepines, opiates and marijuana.? Evaluation in the ER demonstrated acute kidney injury.? Patient was called for admission to my service from the ER.? Shortly after I except the patient admission evidently the patient had woke up in the ER and was violent.? He was cussing at staff in using racial slurs and spitting.? He received 5 mg of IM Haldol and 2 mg of Ativan.? After 15 minutes the patient was still straining against hard walking wrist restraints and received 400 mg IM ketamine.? I was called and notified of the change in the patient's condition by the ER provider.? I went down to evaluate the patient found the patient in four-point locking restraints and completely sedated.? The patient did not wake up and was
[2022-07-04] MEDS: dexmedeTOMIDine 400 MCG/100 ML 400 MCG/100 ML BAG 14.79 MCG IV CONT (14:50)
--- NOTE | 2022-07-04 18:51 | WPDCNPSYCH ---
HPI Data of Consult Date/Time: 07/04/22 18:51 Requesting Physician: Angelique Dalton DO Primary Care Provider: Morales Beltre MD Consult Narrative Narrative: Psychiatry Off Service Note: Sarmad Mercado is a 51 year old male who terminated the interview within five minutes and told me not to come back. He was most verbally abusive. I will be available for re-consultation if patient is willing to allow Psychiatric Consultation and if you think I may be of some meaningful clinical benefit for the patient. Until then, I will go off service at this time. [facility] Past Medical History Medical History Anxiety Chronic pain COPD (chronic obstructive pulmonary disease) Depression Gout Migraines Spinal stenosis, lumbar region without neurogenic claudication Surgical History Surgical History History of cervical spinal arthrodesis 09/30 Dr. Kamara History of foot surgery History of repair of right rotator cuff Family History Family History Father Diabetes mellitus Heart disease Mother Diabetes mellitus Carcinoma of colon Social History Social History Social History: According to past medical records the patient has smoked as much as 3 packs cigarettes per day. He has a history of episodic alcohol use. Smoking packs per day: 3 Smoking cigarettes per day: 60.0 Years smoked: 25 Smoking pack-years: 75.00 Smoking status: Heavy tobacco smoker Second hand tobacco smoke exposure: Yes Smoking end date: 11/14/13 Alcohol intake: current Substance use: current Spiritual care concerns: No Meds Home Medications and Allergies Home Medications Medication Instructions Recorded Confirmed Type hydrocodone 7.5 mg-acetaminophen 1 tablet PO TID PRN pain #90 tabs 06/03/22 07/03/22 Rx 325 mg tablet diazepam 5 mg tablet 5 mg PO QHS PRN anxiety #30 tabs 06/06/22 07/03/22 Rx allopurinol 300 mg tablet 300 mg PO DAILY 07/03/22 07/03/22 History diclofenac sodium 75 mg 75 mg PO BID 07/03/22 07/03/22 History tablet,delayed release nortriptyline 25 mg capsule 25 mg PO HS 07/03/22 07/03/22 History Allergies Allergy/AdvReac Type Severity Reaction Status Date / Time amitriptyline AdvReac Mild drowsiness Verified 07/03/22 01:45 Vital Signs Vital Signs - 24 hr 07/03/22 20:00 07/03/22 20:00 07/03/22 20:00 Temperature 98.4 F Pulse Rate 77 77 Respiratory Rate 18 Blood Pressure 99/78 L Pulse Oximetry 96 Oxygen Delivery Room Air 07/03/22 22:00 07/03/22 22:00 07/04/22 00:00 Temperature 98 F 97.7 F Pulse Rate 75 75 74 Respiratory Rate 20 21 H Blood Pressure 102/77 103/80 Pulse Oximetry 95 94 Oxygen Delivery 07/04/22 00:00 07/04/22 00:00 07/04/22 01:59 Temperature 97.3 F L Pulse Rate 73 72 Respiratory Rate 19 Blood Pressure 95/76 L Pulse Oximetry 94 Oxygen Delivery Room Air 07/04/22 02:00 07/04/22 03:59 07/04/22 05:20 Temperature 97.2 F L 97.2 F L Pulse Rate 72 72 78 Respiratory Rate 18 27 H Blood Pressure 105/79 101/90 Pulse Oximetry 95 95 Oxygen Delivery 07/04/22 04:00 07/04/22 04:00 07/04/22 06:00 Temperature Pulse Rate 71 74 Respiratory Rate Blood Pressure Pulse Oximetry Oxygen Delivery Room Air 07/04/22 07:42 07/04/22 09:42 07/04/22 09:44 Temperature 97.8 F Pulse Rate 74 74 Respiratory Rate 23 H 23 H Blood Pressure 101/90 121/100 H Pulse Oximetry 94 Oxygen Delivery 07/04/22 10:00 07/04/22 08:00 07/04/22 14:50 Temperature Pulse Rate 74 72 Respiratory Rate 20 19 Blood Pressure 121/100 H Pulse Oximetry 94 Oxygen Delivery Room Air 07/04/22 12:55 07/04/22 08:00 07/04/22 10:00 Temperature 98.0 F Pulse Rate 76 74 75 Respiratory Rate 18 Blood Pressure 12
[2022-07-04] MEDS: dexmedeTOMIDine 400 MCG/100 ML 400 MCG/100 ML BAG 19.01 MCG IV CONT (20:45)
--- NOTE | 2022-07-04 23:09 | PC.NURSE ---
Patient continues to be belligerent and verbally abusive towards staff. This RN changed patient's IV tubing and had ABDULLAHI Garrett and Irene RN at bedside with this RN while tubing was being changed. Patient woke up, screaming That bald-headed queer needs to get the fuck out of my room. Patient threatening to kill staff and rip out all of his IV's if we don't do as he wishes. This RN called security to bedside at [phone]. Patient requesting soda but is not satisfied that we don't have Mountain Dew for him to drink. ABDULLAHI Garrett offered him Pepsi and that was not adequate. Patient saying he is going to start spitting at staff if we don't get the fuck out of my room. This RN notified hand shoes sewer Jenn of recent occurrences. Will continue to monitor.
[2022-07-05] VITALS (8 sets, daily range): BP systolic 138–157; BP diastolic 92–101; PULSE 65–88; RESP 14–20; TEMP 36.3–36.4; O2SAT 92–100
[2022-07-05] MEDS: ALBUTEROL SULFATE NEB 2.5 MG/3 ML INH INHALATION (00:12)
[2022-07-05] MEDS: dexmedeTOMIDine 400 MCG/100 ML 400 MCG/100 ML BAG 21.13 MCG IV CONT (01:19)
[2022-07-05] MEDS: LACTATED RINGERS 1,000 ML 125 ML IV CONT (02:57)
[2022-07-05] MEDS: dexmedeTOMIDine 400 MCG/100 ML 400 MCG/100 ML BAG 19.01 MCG IV CONT (05:42)
[2022-07-05] MEDS: MIDAZOLAM HCL (*CRX) 2 MG/2 ML VIAL 4 MG IV PUSH ×2 (07:45→08:15)
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
[2022-07-05] MEDS: LORazepam INJ (*CRX) 2 MG/ML VIAL IV PUSH (08:40)
[2022-07-05 09:11] LABS: Hemoglobin 12.9 g/dL (14.0-18.0); Mean Corpuscular HGB Conc 33.1 g/dl (32-36); Mean Corpuscular Hemoglobin 30.5 pg (26-34); Mean Corpuscular Volume 92.2 fl (80-100); Mean Platelet Volume 9.3 fl (7.4-10.4); Platelet Count Result 160 k/mm3 (150-375); Red Blood Count 4.23 M/mm3 (4.6-6.20); White Blood Count 10.1 K/mm3 (4.5-10.0)
[2022-07-05 09:37] LABS: Alanine Aminotransferase 17 U/L (6-50); Albumin Level 2.9 g/dL (3.5-5.1); Alkaline Phosphatase 63 U/L (38-126); Anion Gap 7 mmol/L (8-16); Aspartate Amino Transferase 22 U/L (17-59); Bilirubin,Total 0.4 mg/dL (0.2-1.3); Blood Urea Nitrogen 28 mg/dL (9-20); Calcium 8.2 mg/dL (8.4-10.2); Carbon Dioxide 23 mmol/L (22-30); Chloride 107 mmol/L (98-107); Creatine Kinase 262 U/L (55-170); Estimated CRCL calculation 59 ml/min; Estimated Glomerular Filt Rate 53; Glucose 99 mg/dL (65-110); Magnesium 1.9 mg/dL (1.6-2.3); Phosphorus 2.8 mg/dL (2.5-4.5); Potassium 3.8 mmol/L (3.4-5.0); Sodium 137 mmol/L (137-145)
--- NOTE | 2022-07-05 10:14 | PCFNICU ---
ICU Rounding Note: Pt current nutrition is Regular diet. Intakes 0-25%. Nutrition recommendation: Continue regular diet Last recorded weight is 88.4 kg. Bowel Motility: 0 BM charted Labs Reviewed: Na 133, Creat 1.5 Meds Noted: Precedex Skin: WNL Additional Notes: Pt is belligerent and refusing several meals. Intakes are poor. Continue regular diet Following daily in ICU rounds. .
[2022-07-05 10:25] LABS: HIV 1/2 Ab P24 Ag Result Negative (Negative); Hepatitis B Surface Anti Res Negative; Hepatitis C Virus Antibody Negative (Negative)
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
--- NOTE | 2022-07-05 12:35 | WPDURCON ---
Assessment and Plan Assessment and plan (1) Gross hematuria: Code(s): R31.0 - Gross hematuria Status: Acute Assessment and Plan: this is a gentleman with gross hematuria due to catheter trauma. His Ratliff catheter was removed with the balloon up. I witnessed him able to void on his own. The urine was grossly bloody with clots, but he had a successful void. He is leaving the hospital against medical advice. I have spoken with him and his . Again he was able to void. I encouraged them to visit in emergency room if he is in urinary retention. I let them know to expect blood from meatus for several hours. as long as he is able to void I think that replacing a Ratliff catheter would cause potentially much more problems than leaving him alone. Of note he is combative and not controllable. (2) Complication of Ratliff catheter: Code(s): T83.9XXA - Unspecified complication of genitourinary prosthetic device, implant and graft, initial encounter Status: Acute Urology Consult Note HPI Date Seen: 07/05/22 Requesting Physician: Angelique Dalton DO Primary Care Provider: Morales Beltre MD Consult Narrative Narrative: Sarmad Mercado is a 51 year old male who was admitted to the hospital after an intentional overdose of benzodiazepines and a suicide attempt. He was sedated until recently. He had a Ratliff catheter in place during this admission. He is quite combative and not controllable. He pulled out his Ratliff catheter with the balloon inflated within the last hour. There is been bleeding per meatus. It has been improving over the last 20-30 minutes. I did witness him void it and his urine was bloody with clots, but he was able to urinate. I am not able to obtain much other history as he is quite combative. His is present with him. They state they are leaving against medical advice and either going home or to another hospital. Review of Systems Review of Systems: All systems reviewed & are unremarkable except as noted in HPI and below ROS unobtainable: Yes unobtainable due to medical condition PMFSH Past Medical History Medical History Anxiety Chronic pain COPD (chronic obstructive pulmonary disease) Depression Gout Migraines Spinal stenosis, lumbar region without neurogenic claudication Surgical History Surgical History History of cervical spinal arthrodesis 09/30 Dr. Kamara History of foot surgery History of repair of right rotator cuff Family History Family History Father Diabetes mellitus Heart disease Mother Diabetes mellitus Carcinoma of colon Social History Social History Social History: According to past medical records the patient has smoked as much as 3 packs cigarettes per day. He has a history of episodic alcohol use. Smoking packs per day: 3 Smoking cigarettes per day: 60.0 Years smoked: 25 Smoking pack-years: 75.00 Smoking status: Heavy tobacco smoker Second hand tobacco smoke exposure: Yes Smoking end date: 11/14/13 Alcohol intake: current Substance use: current Spiritual care concerns: No Meds Home Medications and Allergies Home Medications Medication Instructions Recorded Confirmed Type hydrocodone 7.5 mg-acetaminophen 1 tablet PO TID PRN pain #90 tabs 06/03/22 07/03/22 Rx 325 mg tablet diazepam 5 mg tablet 5 mg PO QHS PRN anxiety #30 tabs 06/06/22 07/03/22 Rx allopurinol 300 mg tablet 300 mg PO DAILY 07/03/22 07/03/22 History diclofenac sodium 75 mg 75 mg PO BID 07/03/22 07/03/22 History tablet,delayed release nortriptyline 25 mg capsule 25 mg PO HS 07/03/22 07/03/22 History Allergies Allergy/AdvReac Type Severity Reaction Status Date / Time amitriptyline AdvReac Mild
--- NOTE | 2022-07-05 16:05 | PM.DS ---
DS: Admitting Diagnosis Discharge Date 07/05/2022 left AMA Admitting Diagnosis Benzodiazepine (tranquilizer) overdose: DS: Discharge Diagnosis Discharge Diagnosis (1) Benzodiazepine (tranquilizer) overdose: Qualifiers: Encounter type: initial encounter Injury intent: intentional self-harm Qualified Code(s): T42.4X2A - Poisoning by benzodiazepines, intentional self-harm, initial encounter Code(s): T42.4X1A - Poisoning by benzodiazepines, accidental (unintentional), initial encounter Status: Acute Assessment and Plan: Patient attempted suicide via benzodiazepine overdose the patient actually woke up after benzodiazepine overdose but became quite agitated likely due to his concomitant or recent methamphetamine ingestion. Patient subsequently required doses of Haldol, Ativan and ketamine. Patient is now in the ICU on Precedex drip. personal property appraiser is at bedside. Patient is no longer in hard restraints. 07/04/2022 interval history: this morning patient's is present in the room patient still quite agitated and uncooperative and speaks out in profanity, discussed with national van owner operator will have a psychiatry consult further evaluate the patient patient will benefit going into inpatient [facility] for treatment, will continue to monitor. (2) Suicide attempt: Code(s): T14.91XA - Suicide attempt, initial encounter Status: Acute Assessment and Plan: personal property appraiser at bedside. Patient will need medical clearance prior to psychiatric evaluation. (3) Amphetamine abuse: Code(s): F15.10 - Other stimulant abuse, uncomplicated Status: Acute Assessment and Plan: Symptomatic treatment with benzodiazepines. Patient is currently on Precedex infusion. (4) Acute kidney injury: Code(s): N17.9 - Acute kidney failure, unspecified Status: Acute Assessment and Plan: Likely due to combination of dehydration and mild rhabdomyolysis from methamphetamine use. Patient received 2 L isotonic fluids in the ER. Will continue LR 125 an hour. Repeat BMP in a.m.. DS: Summary Hospital Course Reason for hospitalization: Chief Complaint: Benzodiazepine overdose Narrative: 51-year-old male with past medical history anxiety, depression, chronic pain and drug use who presented to the ER due to intentional overdose of diazepam.? The entirety of the HPI comes from review of past medical records and ER records.? Per the EMS report the patient ingested 30-35 tablets of 5 mg volume.? The patient had evidently taken the medications and immediately called his over Face time and she saw him take handful of Valium.? The patient is evidently prescribed 5 mg of Valium q.h.s. p.r.n. sleep and was last filled in March.? After she witnessed him in just the pills she called EMS which arrived on scene around 21:00.? The patient was found in his vehicle behind his residence.? He was alert orient x2 with slow speech and unsteady gait.? According to the ER physician's report once patient arrived to the ER he was only responsive to pain in evaluated.? He was reportedly protecting his airway and maintaining oxygen saturations.? Poison Control was contacted and stated that the peak for diazepam would be within 30 minutes and duration of around 2.5 hours.? Urine drug screen was performed and demonstrated positive for benzodiazepines, opiates and marijuana.? Evaluation in the ER demonstrated acute kidney injury.? Patient was called for admission to my service from the ER.? Shortly after I except the patient admission evidently the patient had woke up in the ER and was violent.? He was cussing at staff in using racial slurs and spitting.? He received 5 mg of IM Haldol and 2 mg of Ativan.? After 15 minutes the patient was still straining against hard walking wrist restraints and received 400 mg IM ketamine.? I was called and notified of the change in the patient's condition by the ER provider.? I
== END 2022-07-05 13:20 | disposition left against medical advice (07) | DRG 917 ==
LOC: ANHED 07-03 00:50 → ANHICU 07-03 03:01
PROVIDERS: Internal Medicine; Admitting Provider Internal Medicine; Emergency Provider Emergency Medicine; PCP Family Medicine Adolescent Medicine; Visit Provider Family Medicine
DX: T42.4X2A Poisoning by benzodiazepines, intentional self-harm, initial encounter (principal); G92.9 Unspecified toxic encephalopathy; N17.9 Acute kidney failure, unspecified; M62.82 Rhabdomyolysis; S37.39XA Other injury of urethra, initial encounter; R31.0 Gross hematuria; X83.8XXA Intentional self-harm by other specified means, initial encounter; J44.9 Chronic obstructive pulmonary disease, unspecified; F15.10 Other stimulant abuse, uncomplicated; F17.210 Nicotine dependence, cigarettes, uncomplicated; F41.9 Anxiety disorder, unspecified; F32.A Depression, unspecified; G89.29 Other chronic pain; M10.9 Gout, unspecified; M48.061 Spinal stenosis, lumbar region without neurogenic claudication; G43.909 Migraine, unspecified, not intractable, without status migrainosus; Z20.822 Contact with and (suspected) exposure to COVID-19; Z79.891 Long term (current) use of opiate analgesic
CPT/HCPCS: 36415; 36600; 51701; 71045; 72040; 73030; 76775; 80053; 80307; 81001; 82550; 82570; 82805; 83735; 84100; 84300; 84443; 85025; 85027; 86703; 86706; 86803; 87086; 93005; 94640; 96372; 96374; 99283; 99285; C9113; G0432; J1630; J1650; J2060; J2250; J2704; J2930; J7030; J7120; U0003; U0005

== ENCOUNTER 2024-04-21 12:46 | Outpatient (CLI) | payer MEDICARE, MEDICAID, SELFPAY ==
[2024-04-21 13:16] LABS: Hematocrit 27.3 % (42.0-52.0); Hemoglobin 8.7 g/dL (14.0-18.0); Mean Corpuscular HGB Conc 31.9 g/dl (32-36); Mean Corpuscular Hemoglobin 30.5 pg (26-34); Mean Corpuscular Volume 95.8 fl (80-100); Mean Platelet Volume 9.2 fl (7.4-10.4); Platelet Count Result 164 k/mm3 (150-375); Red Blood Count 2.85 M/mm3 (4.6-6.20); Red Cell Distribution Width 13.8 % (11.5-14.5); White Blood Count 7.5 K/mm3 (4.5-10.0)
[2024-04-21 13:31] LABS: Alanine Aminotransferase 21 U/L (6-50); Albumin Level 3.8 g/dL (3.5-5.1); Alkaline Phosphatase 78 U/L (38-126); Anion Gap 12 mmol/L (4-12); Aspartate Amino Transferase 20 U/L (17-59); Bilirubin,Total 0.3 mg/dL (0.2-1.3); Blood Urea Nitrogen 68 mg/dL (9-20); Carbon Dioxide 22 mmol/L (22-30); Chloride 104 mmol/L (98-107); Estimated Glomerular Filt Rate 7; Glucose 104 mg/dL (65-110); Potassium 4.1 mmol/L (3.4-5.0); Sodium 138 mmol/L (137-145)
[2024-04-21 14:00] LABS: Prostate Specific Antigen 2.1 ng/mL (< OR = 4.0)
== END 2024-04-21 12:47 | disposition home or self-care (01) ==
LOC: ANHLAB 12:54
PROVIDERS: PCP Family Medicine Adolescent Medicine; Visit Provider Family Medicine Adolescent Medicine
DX: Z12.5 Encounter for screening for malignant neoplasm of prostate (principal); G62.9 Polyneuropathy, unspecified; J44.9 Chronic obstructive pulmonary disease, unspecified; R06.00 Dyspnea, unspecified; R25.1 Tremor, unspecified; R53.83 Other fatigue; R25.2 Cramp and spasm
CPT/HCPCS: 36415; 80053; 84153; 84443; 85027; G0103

== ENCOUNTER 2024-04-22 20:19 | Emergency (ER) | payer MEDICARE, MEDICAID, SELFPAY ==
--- NOTE | 2024-04-22 21:18 | PC.NURSE ---
pt to learning and development administrator we are leaving
== END 2024-04-22 21:36 | disposition left against medical advice (07) ==
LOC: ANHED 21:23
PROVIDERS: PCP Family Medicine Adolescent Medicine
DX: Z53.21 Procedure and treatment not carried out due to patient leaving prior to being seen by health care provider (principal)
CPT/HCPCS: 99199

== ENCOUNTER 2024-04-23 10:56 | Inpatient (IN) | payer MEDICARE, SELFPAY ==
[2024-04-23] VITALS (12 sets, daily range): BP systolic 168–187; BP diastolic 92–129; PULSE 88–103; RESP 16–24; O2SAT 95–98
--- NOTE | 2024-04-23 | ECHO_ITS ---
Patient Info Name: Sarmad Mercado Age: 53 years : 1970 Gender: Male Ht: 69 in Wt: 180 lbs BSA: 2.01 m2 HR: 100 bpm BP: 168 / 92 mmHg Heart Rhythm: Sinus Rhythm Technical Quality: Good Exam Date: 04/23/2024 4:14 PM Exam Location: Echo Lab Patient Status: Inpatient Admit Date: 04/23/2024 Staff Ordering Physician: Dayanara Solomon APRN Labeling Machine Operator: Annika Smith RDCS Attending Provider: Frandy Stevenson MD Referring Physician: Juanito SAMANIEGO; Exam Type: CA echo doppler color flow Study Info Indications - shorthness of breath Complete two-dimensional, color flow and Doppler transthoracic echocardiogram is performed. Summary 1. Complete two-dimensional, color flow and Doppler transthoracic echocardiogram is performed. 2. Left ventricular chamber dimension is normal. 3. Left ventricular systolic function is mildly reduced, estimated at 40-45%. 4. There is mildly increased left ventricular wall thickness. 5. The left ventricular diastolic function is grade I diastolic dysfunction. 6. Right ventricular systolic function is normal. 7. Left atrial chamber dimension is mildly enlarged. 8. Right atrial chamber dimension is mildly enlarged. 9. There is mild tricuspid valve regurgitation. Left Ventricle Left ventricular chamber dimension is normal. Left ventricular systolic function is mildly reduced, estimated at 40-45%. There is mildly increased left ventricular wall thickness. The left ventricular diastolic function is grade I diastolic dysfunction. Right Ventricle Right ventricular chamber dimension is normal. Right ventricular systolic function is normal. Left Atria Left atrial chamber dimension is mildly enlarged. Right Atria Right atrial chamber dimension is mildly enlarged. Atrial Septum Intact interatrial septum visualized by color flow imaging. Aortic Valve The aortic valve is not well visualized. There is no aortic valve stenosis. There is no aortic valve regurgitation. There is mild aortic valve calcification. Pulmonic Valve The pulmonic valve is not well visualized. Mitral Valve The mitral valve has thickened leaflets. There is trace mitral valve regurgitation. Tricuspid Valve There is mild tricuspid valve regurgitation. Pericardium/Pleural There is no pericardial effusion. Inferior Vena Cava Inferior vena cava is not well visualized. Aorta The aortic root size at the sinus of Valsalva is normal. Left Ventricular Outflow Tract Name Value Normal LVOT 2D LVOT Diameter 2.1 cm LVOT Doppler LVOT Peak Gradient 3 mmHg LVOT Mean Gradient 2 mmHg LVOT VTI 17 cm LVOT VTI/AV VTI Ratio 0.8 LVOT Stroke Volume 59 ml LVOT CO 5.1 l/min LVOT CI 2.5 l/min/m2 Pulmonic Valve Name Value Normal PV Doppler PV Peak
--- NOTE | ~2024-04-23 | XR_ITS ---
EXAMINATION: XR chest 2V DATE: 04/23/2024 11:46 INDICATION: Dyspnea. TECHNIQUE: Frontal and lateral views of the chest were obtained. COMPARISON: Chest single view 07/03/2022 FINDINGS: Ritesh B-lines are noted, consistent with mild pulmonary edema. No pleural effusion or pneu mothorax. The heart size is normal. IMPRESSION: 1. Mild pulmonary edema. Reviewed, dictated and finalized at location A. IMPRESSION: 1. Mild pulmonary edema.
--- NOTE | ~2024-04-23 | US_ITS ---
EXAMINATION: US renal BI DATE: 04/23/2024 13:12 INDICATION: Renal failure. TECHNIQUE: Multiple ultrasound grayscale images of the kidneys were obtained. COMPARISON: Ultrasound 07/03/2022 FINDINGS: The right kidney measures 9.6 x 4.8 x 4.7 cm. The left kidney measures 9.4 x 4.5 x 5.6 cm. The kidney s demonstrate increased parenchymal echogenicity. There is no hydronephrosis. The bladder is normal. IMPRESSION: 1. Increased renal parenchymal echogenicity, consistent with nonspecific nephropathy. No hydronephros is. Reviewed, dictated and finalized at location A. IMPRESSION: 1. Increased renal parenchymal echogenicity, consistent with nonspecific nephro brandin. No hydronephrosis.
--- NOTE | 2024-04-23 11:02 | ECG_ITS ---
Test Date: 2024-04-23 11:10:14 Measurements Intervals Platinum Rate: 97 P: 53 FL: 133 QRS: 7 QRSD: 98 T: 63 QT: 373 QTc: 474 Interpretive Statements SINUS RHYTHM DELAYED PRECORDIAL R/S TRANSITION MINIMAL Q WAVES- HIGH LATERAL LEADS NONSPECIFIC T-WAVE ABNORMALITY- DIFFUSE LEADS BASELINE ARTIFACT- V1-V6 BORDERLINE ECG No previous ECG available for comparison Electronically Signed On 04-23-2024 11:25:34 CDT by Antonio Gonzales D.O.
[2024-04-23 11:27] LABS: Basophils Percent Auto 0.6 % (0.2-1.2); Eosinophils Absolute Auto 0.2 K/mm3 (0-0.3); Eosinophils Percent Auto 3.2 % (0-4.4); Hemoglobin 9.7 g/dL (14.0-18.0); Immature Granulocyte Absolute 0.02 K/mm3 (0.00-0.031); Immature Granulocyte Percent A 0.3 % (0-0.5); Lymphocytes Absolute Auto 1.19 K/mm3 (0.9-3.2); Lymphocytes Percent Auto 18.3 % (18.3-44.2); Mean Corpuscular HGB Conc 31.3 g/dl (32-36); Mean Corpuscular Hemoglobin 30.3 pg (26-34); Mean Corpuscular Volume 96.9 fl (80-100); Mean Platelet Volume 9.7 fl (7.4-10.4); Monocytes Absolute Auto 0.3 K/mm3 (0.1-0.6); Monocytes Percent Auto 5.2 % (2.6-8.5); Neutrophils Absolute Auto 4.7 K/mm3 (1.3-6.7); Neutrophils Percent Auto 72.4 % (45.5-73.1); Platelet Count Result 178 k/mm3 (150-375); Red Cell Distribution Width 13.9 % (11.5-14.5); White Blood Count 6.5 K/mm3 (4.5-10.0)
[2024-04-23 11:37] LABS: Partial Thromboplastin Time 31.5 Seconds (22.3-36.8)
[2024-04-23 11:39] LABS: Alanine Aminotransferase 26 U/L (6-50); Albumin Level 4.3 g/dL (3.5-5.1); Alkaline Phosphatase 95 U/L (38-126); Anion Gap 15 mmol/L (4-12); Aspartate Amino Transferase 26 U/L (17-59); Bilirubin,Total 0.5 mg/dL (0.2-1.3); Blood Urea Nitrogen 66 mg/dL (9-20); Calcium 8.7 mg/dL (8.4-10.2); Carbon Dioxide 22 mmol/L (22-30); Chloride 102 mmol/L (98-107); Estimated CRCL calculation 9 ml/min; Estimated Glomerular Filt Rate 7; Glucose 132 mg/dL (65-110); Potassium 4.6 mmol/L (3.4-5.0); Sodium 139 mmol/L (137-145)
[2024-04-23 11:52] LABS: NT Pro B Type Natriuretic Pept 8350 pg/mL (19.9-100); Troponin I 0.112 ng/mL (0.000-0.034)
--- NOTE | 2024-04-23 12:32 | ED.SOB ---
HPI - SOB/Dyspnea General Chief Complaint: Shortness of Breath/Dyspnea Stated Complaint: abnormal labs Time Seen by Provider: 04/23/24 11:13 History of Present Illness HPI Narrative: Patient is a 53-year-old male who presents ER with shortness of breath and abnormal labs. He had his annual checkup with his PCP and was shaky a few days ago so outpatient labs ordered. Patient reports he has been having dyspnea on exertion is also been having orthopnea. No cough. No fevers or chills or sweats. No chest pain. Patient reports he is urinating normally. Denies history of hypertension and diabetes. Abnormal labs showed renal failure and anemia. reports that she noticed that there was blood in the toilet a couple weeks ago. Patient denies having bloody bowel movements. Related Data Allergies Allergy/AdvReac Type Severity Reaction Status Date / Time amitriptyline AdvReac Mild drowsiness Verified 04/23/24 10:56 Review of Systems Review of Systems: All systems reviewed & are unremarkable except as noted in HPI and below Constitutional: Constitutional: Denies chills, Reports fatigue and Denies fever(s) ENT: Reports system reviewed and no additional complaints, except as documented Cardiovascular: Cardiovascular: Reports no additional cardiovascular complaints Respiratory: Respiratory: Denies chest congestion, Denies cough, Reports dyspnea and Denies wheezing Gastrointestinal: Gastrointestinal: Reports no additional gastrointestinal complaints Neurologic: Reports system reviewed and no additional complaints, except as documented [facility] Past Medical History Medical History Anxiety Benzodiazepine (tranquilizer) overdose (06/2022) Chronic pain COPD (chronic obstructive pulmonary disease) Depression Gout Migraines Spinal stenosis, lumbar region without neurogenic claudication Suicide attempt (06/2022) Surgical History Surgical History History of cervical spinal arthrodesis 09/30 Dr. Kamara History of foot surgery History of repair of right rotator cuff Family History Family History Father Diabetes mellitus Heart disease Mother Diabetes mellitus Carcinoma of colon Social History Social History Social History: According to past medical records the patient has smoked as much as 3 packs cigarettes per day. He has a history of episodic alcohol use. Smoking packs per day: 3 Smoking cigarettes per day: 60.0 Years smoked: 25 Smoking pack-years: 75.00 Smoking status: Heavy tobacco smoker Second hand tobacco smoke exposure: Yes Smoking end date: 11/14/13 Alcohol intake: current Substance use: current Lack of Transportation: No Lack of Food: Sometimes True Current Housing: I Have Housing Concerned About Future Housing: No Difficulty Paying Gas/Electric Bills: No Difficulty Paying for Meds: Decline to Answer Currently Unemployed: Decline to Answer Education: Decline to Answer Difficulty w/ Childcare or Family Care: No Spiritual care concerns: No Exam Narrative: GENERAL: Well-appearing, well-nourished, and in no acute distress. HEAD: Normocephalic, atraumatic. ENT: Mucous membranes moist. NECK: Supple. CHEST: Faint crackles. No respiratory distress. Becomes short of breath when lying back HEART: Regular rate and rhythm. Normal peripheral pulses. ABDOMEN: Soft, nontender, nondistended. EXTREMITIES: Normal range of motion. No edema. SKIN: Warm, dry, no rash. NEURO: Alert and oriented x3. PSYCH: Normal mood and affect. Course Course Emergency Course: Patient with evidence of heart failure and renal failure. Admit to the hospitalist. Nephrology consulted. He has had a renal ultrasound. Lasix 80mg recommended. 174: Patient rita
[2024-04-23] MEDS: FUROSEMIDE INJ 100 MG/10 ML VIAL 80 MG IV PUSH (12:40)
--- NOTE | 2024-04-23 14:06 | PC.NURSE ---
Patient still states he is unable to give urine sample at this time..
--- NOTE | 2024-04-23 14:27 | PC.NURSE ---
Patient states at this time that if he does not get a bed by the time his is ready for a concer then he will be leaving AMA. this RN notified provider verbally.
--- NOTE | 2024-04-23 15:13 | PM.IMHP ---
H&P: HPI History of Present Illness Date/Time: 04/23/24 15:13 Chief Complaint: Abnormal Labs Narrative: 53 y/o M presents here with abnormal labs with PMH of COPD, depression/anxiety, gout, migraines, spinal stenosis, and suicide attempt via benzodiazepine OD in 2021. The patient presents here from home for further evaluation of abnormal labs. Patient saw his PCP yesterday on 04/22 for follow-up on his chronic low back pain and COPD. He reported then that his pain is unchanged and had been compliant with his current regimen: Hydrocodone 7.5/325 t.i.d., baclofen, and diclofenac. Patient reports his COPD has been worse as of late. Albuterol would provide him relief, but would not last for long. Reports the shortness of breath has began to interfere with his activities stating he could not walk more than 50 ft without becoming severely dyspneic and he has been experiencing conversational dyspnea. Basic lab workup was ordered which showed anemia with hemoglobin of 8.7 (previously 12.9 in June of 2022) and creatinine of 8.3 and GFR 7 (previously 1.4 and GFR of 53 on 07/05/2022). The patient previously had normal kidney function until June of 2022 after a suicide attempt via overdose of Valium, treated here at [facility]. Patient denies any changes in urine volume or previous history of HTN or diabetes. Initial VS at presentation: HR 103, RR 22, 183/123, and 98% on RA. ED workup showed: Hemoglobin 9.7, no leukocytosis, normal coags, creatinine 8.5 and GFR 7, glucose 132, initial troponin 0.112, and BNP 8350. CXR showed mild pulmonary edema. Renal ultrasound showed an increased renal parenchymal echogenicity consistent with nonspecific nephropathy and no hydronephrosis. Review of Systems Review of Systems: All systems reviewed & are unremarkable except as noted in HPI and below PMFSH Past Medical History Medical History Anxiety Benzodiazepine (tranquilizer) overdose (06/2022) Chronic pain COPD (chronic obstructive pulmonary disease) Depression Gout Migraines Spinal stenosis, lumbar region without neurogenic claudication Suicide attempt (06/2022) Surgical History Surgical History History of cervical spinal arthrodesis 09/30 Dr. Kamara History of foot surgery History of repair of right rotator cuff Family History Family History Father Diabetes mellitus Heart disease Mother Diabetes mellitus Carcinoma of colon Social History Social History Social History: According to past medical records the patient has smoked as much as 3 packs cigarettes per day. He has a history of episodic alcohol use. Smoking packs per day: 3 Smoking cigarettes per day: 60.0 Years smoked: 25 Smoking pack-years: 75.00 Smoking status: Heavy tobacco smoker Second hand tobacco smoke exposure: Yes Smoking end date: 11/14/13 Alcohol intake: current Substance use: current Lack of Transportation: No Lack of Food: Sometimes True Current Housing: I Have Housing Concerned About Future Housing: No Difficulty Paying Gas/Electric Bills: No Difficulty Paying for Meds: Decline to Answer Currently Unemployed: Decline to Answer Education: Decline to Answer Difficulty w/ Childcare or Family Care: No Spiritual care concerns: No Meds Home Medications and Allergies Home Medications Medication Instructions Recorded Confirmed Type albuterol sulfate 90 mcg/actuation 2 inh inhalation Q4H PRN shortness 08/12/22 Rx aerosol inhaler of breath or wheezing #8.5 grams diclofenac sodium 75 mg 75 mg PO BID #180 tabs 04/15/23 Rx tablet,delayed release nortriptyline 25 mg capsule 25 mg PO HS #90 caps 04/15/23 Rx allopurinol 300 mg tablet 300 mg PO DAILY #90 tabs 05/19
--- NOTE | 2024-04-23 16:47 | PC.NURSE ---
Patient states at this time he is willing to stay in the hospital.
[2024-04-23 16:54] LABS: Creatine Kinase 106 U/L (55-170)
--- NOTE | 2024-04-23 17:04 | PC.NURSE ---
Dinner ordered for patient at this time.
[2024-04-23 17:12] LABS: Add Urine Microscopic? YES; Appearance Urine Clear (Clear); Bacteria Urine None Seen /hpf; Bilirubin Urine Negative (Negative); Blood Urine 1+ (Negative); Color Urine Yellow (Yellow); Glucose Urine UA Negative (Negative); Ketones Urine Negative (Negative); Leukocyte Esterase Ur Negative LEU/UL (Negative); Nitrate Urine Negative (Negative); Non Pathogenic Casts 0-2; Protein Urine 2+ mg/dL (Negative); Specific Grav Ur 1.008 (1.001-1.035); Squamous Epithelial Cell Urine None Seen /hpf (Few); Urobilinogen Urine 0.2 mg/dL (<2.0); WBC Urine 0-5 /hpf (0-3); pH Urine 6.5 (5.0-9.0)
[2024-04-23 17:14] LABS: Iron 56 ug/dL (49-181)
[2024-04-23 17:21] LABS: Troponin I 0.101 ng/mL (0.000-0.034)
[2024-04-23] MEDS: IPRATROPIUM 0.5 MG/ALBUTEROL SULFATE 2.5 MG AMPUL.NEB 3 ML INHALATION (17:21)
[2024-04-23 17:24] LABS: Percent Iron Saturation 17 % (20-50)
[2024-04-23 17:25] LABS: Magnesium 2.3 mg/dL (1.6-2.3)
--- NOTE | 2024-04-23 17:25 | PC.NURSE ---
Patient states he is non-compliant with home medications. Med rec is confirmed at this time per patient verbal history and recollection
[2024-04-23 18:17] LABS: Folic Acid 5.7 ng/mL (2.76->20)
[2024-04-23] MEDS: FUROSEMIDE INJ 40 MG/4 ML VIAL IV PUSH (18:34)
[2024-04-24 01:48] LABS: Complement C3 125 mg/dL (88-165)
[2024-04-24 01:59] LABS: Hepatitis B Surface Antigen Negative (Negative)
[2024-04-24 02:16] LABS: Hepatitis B Surface Anti Res Negative
--- NOTE | 2024-04-29 21:33 | PM.EVENT ---
Event Note Event Note Event Note: Patient left AMA on 04/23/24. Bedside RN in ED discussed risks to his health with leaving against medical advice. During history and physical, had extensive discussion with patient about the critical findings in his lab work. Prior to leaving the patient had made multiple statements that he would leave AMA if he did not receive a bed quickly. Patient was A&O x4 and ambulatory at that time.
== END 2024-04-23 18:41 | disposition left against medical advice (07) | DRG 683 ==
LOC: ANHED 11:47 → ANHIMU 13:42
PROVIDERS: Internal Medicine Nephrology; Admitting Provider General Practice; Emergency Provider Emergency Medicine; PCP Family Medicine Adolescent Medicine; Visit Provider Student in an Organized Health Care Education/Training Program
DX: N17.9 Acute kidney failure, unspecified (principal); J44.1 Chronic obstructive pulmonary disease with (acute) exacerbation; I50.9 Heart failure, unspecified; R03.0 Elevated blood-pressure reading, without diagnosis of hypertension; M10.9 Gout, unspecified; M48.061 Spinal stenosis, lumbar region without neurogenic claudication; G89.29 Other chronic pain; F32.A Depression, unspecified; F41.9 Anxiety disorder, unspecified; Z98.1 Arthrodesis status; Z87.891 Personal history of nicotine dependence
CPT/HCPCS: 36415; 71046; 76775; 80053; 81001; 82550; 82607; 82728; 82746; 83540; 83550; 83735; 83880; 84153; 84443; 84484; 85025; 85027; 85610; 85730; 86160; 86706; 87340; 93005; 93306; 94640; 96374; 99285; A9270; G0103; G0378; J1940